=== PATIENT | female | born 1940 | race Caucasian/White ===

== ENCOUNTER 2017-11-07 10:22 | Day surgery (SDC) | payer MEDICARE, OTHER ==
[2017-11-07] MEDS: CYCLOPENTOLATE 2% OPHTH SOLN 2ML BTL OD (07:00)
[~2017-11-07 10:22] MED LIST: ACETAMINOPHEN 325 MG TAB PO; PHENYLEPHRINE HCL 10 % OPHTH. SOL 5ML OD; PROPARACAINE 0.5% OPHTH SOL 15ML OD
[2017-11-07] MEDS: LIDOCAINE 3.5 % 1ML OPHTH TOPICAL GEL OU (10:45)
[2017-11-07] MEDS: TROPICAMIDE 1% OPHTH SOLN 2ML OD (10:45)
[2017-11-07] MEDS: PHENYLEPHRINE 2.5% OPHTH SOL 2ML OD (10:45)
[2017-11-07] MEDS: OFLOXACIN 0.3 % (OCUFLOX) OPTH SOL 5ML OD (10:45)
[2017-11-07] MEDS: POVIDONE-IODINE 5% OPHTH PREP SOL 30ML As Ordered (12:30)
[2017-11-07] MEDS: HEALON DUET (HEALON 10MG/ML 0.55ML & HEALON ENDOCOAT 30MG/ML 0.85ML) As Ordered (12:30)
[2017-11-07] MEDS: BALANCED SALT IRRIGATION SOLUTION 500ML BAG (FOR OR EYE MACHINE) As Ordered (12:30)
[2017-11-07] MEDS: CEFUROXIME 1MG/0.1ML INTRACAMERAL INJ As Ordered (12:30)
[2017-11-07] MEDS: LIDOCAINE 1% SDV 5 ML VIAL As Ordered (12:30)
[2017-11-07] MEDS ORDERED: AcetaZOLAMIDE 500 MG ER CAP As Ordered (13:04)
[2017-11-07] MEDS ORDERED: fentaNYL 100 MCG/2 ML INJECTION (J3010) As Ordered (13:06)
[2017-11-07] MEDS ORDERED: MIDAZOLAM INJ 2 MG/2 ML VIAL (J2250) As Ordered (13:06)
[2017-11-07] MEDS: AcetaZOLAMIDE 500 MG ER CAP PO (13:13)
[2017-11-07] MEDS ORDERED: TRIMETHOBENZAMIDE 300 MG CAP PO (13:15)
[2017-11-07] MEDS: KETOROLAC 0.5% OPHTH SOLN OD (13:15)
[2017-11-07] MEDS ORDERED: ONDANSETRON 4MG/2ML VIAL (J2405) IV (13:15)
== END 2017-11-07 13:10 | disposition home or self-care (01) ==
LOC: M SDC 10:22
DX: H25.11 Age-related nuclear cataract, right eye (principal); I10 Essential (primary) hypertension; E03.9 Hypothyroidism, unspecified; Z79.82 Long term (current) use of aspirin; Z79.899 Other long term (current) drug therapy
CPT/HCPCS: 66984